=== PATIENT | male | born 1980 | race Caucasian/White ===

== ENCOUNTER 2017-06-22 10:59 | Emergency (ER) | payer OTHER ==
[~2017-06-22] VITALS: Ht 180.3 cm; Wt 91.8 kg
[2017-06-22 11:02] VITALS: TEMP 36.7; Ht 180.3 cm; Wt 91.8 kg
--- NOTE | 2017-06-22 11:51 | EMERGENCY ROOM VISIT NOTE ---
ED Visit Note First contact with patient: 11:10 CHIEF COMPLAINT: Shoulder pain HISTORY OF PRESENT ILLNESS: This 36-year-old male patient presents to the emergency department, ambulatory, complaining of pain in the right anterior shoulder shoulder which began at work 4 days ago. 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 He states he was holding the approximately 100 pound pipe on his right shoulder, crotch below the pipe. He states he then was pushing upward with his legs, causing pressure between his shoulder and the pipe. The patient states he is now experiencing pain in the superior anterior shoulder, but does occasionally radiate down the arm and into the deltoid. There is very mild limitation of motion of the arm because of the pain. The pain is moderate, constant and increases with abduction and supination of the shoulder. The patient states the pain is achy and 5/10. He states the pain has stayed overall the same as it was on after the initial injury, and he became concerned because it is not improving. The patient has taken 600 milligrams Advil twice daily without relief of the pain. No previous significant previous shoulder disease or injury. No numbness or tingling. No neck or back pain. No chest pain or shortness of breath. No abdominal pain or nausea/vomiting. No cough. REVIEW OF SYSTEMS: A 6 system review of systems was performed with positives and pertinent negatives in the HPI. ALLERGIES: None MEDICATIONS: None PMH: Hepatitis C SOCIAL HISTORY: The patient lives locally. He works at [employer]. He denies drug , alcohol use. He admits to using Sn[employer]. PHYSICAL EXAM: Vital Signs: Reviewed nurse's notes, vital signs stable. GENERAL : This is a 36-year-old white male, in no acute distress, well-developed, well- nourished. MUSCULOSKELETAL: There is no deformity in the contour of the right shoulder and there are no jorden deformities noted. There is no sulcus sign. There is tenderness over the AC joint. The patient's range of motion is full, however, full abduction with supination. Supraspinatus strength 5/5. There is mild clavicle tenderness at the acromial end. No tenderness of the humerus, elbow, wrist, or hand. Hand Tufter strength 5/5. Radial pulse 2+. NECK: No tenderness to palpation over the cervical spine or neck in the area of the trapezius muscle. HEART: Regular rate and rhythm without murmurs gallops or rubs. LUNGS: Clear to auscultation bilaterally without wheezes, rales or rhonchi. No accessory muscle use. No retractions. NEURO: The patient is alert and oriented to person, place, and time. Normal sensation to light and sharp touch. Capillary refill less than 2 seconds. RADIOLOGY: R SHOULDER MIN 2 VIEWS ROUTINE HISTORY: 36 years-old Male right anterior shoulder/AC joint pain acute right shoulder pain status post injury COMPARISON: None available TECHNIQUE: 3 views of the right shoulder FINDINGS: Mild degenerative changes of the AC joint. No acute fracture or subluxation identified. No evidence of AC joint separation. Mild multilevel endplate spurring of the spine. Imaged lung farias appear clear. IMPRESSION: Mild degenerative changes of the right acromioclavicular joint without acute fracture or subluxation. The above report was generated using voice recognition software. It may contain grammatical, syntax or spelling errors. Electronically signed by: Abraham Joyner M.D. 06/22/2017 11:56 AM Dictated Date/Time: 06/22/2017 11:55 AM EMERGENCY DEPARTMENT COURSE: I examined the patient. An X-ray of the right shoulder was reviewed by myself and radiologist and shows no acute fracture or bony abnormality. The patient's KORY and symptoms are consistent with a contusion of the shoulder, in the area of the AC joint. I did offer the patient a sling for comfort, and he declines. Discharge instructions were reviewed and the patient was discharged home in good condition. Blood Pressure Screening: Patient was found to have a slightly elevated blood pressure due to circumstances. I do not believe that the patient requires hypertension monitoring. I attest that I have personally reviewed the patient's current medication list. DIFFERENTIAL DIAGNOSIS: Shoulder contusion, sprain, strain, AC separation, dislocation, malignancy, and others DIAGNOSIS: Shoulder Contusion Current/Historical Medications No Active Prescriptions or Reported Meds Allergies Coded Allergies: No Known Allergies (Verified , 06/22/17) Vital Signs Date Time Temp Pulse Resp B/P (MAP) Pulse Ox O2 Delivery O2 Flow Rate FiO2 06/22/17 12:25 67 16 125/86 97 Room Air 06/22/17 11:02 36.7 81 18 151/92 99 Room Air Departure Information Impression Primary Impression: Contusion of right shoulder region Dispostion Home / Self-Care Condition GOOD Prescriptions No Active Prescriptions or Reported Meds Referrals Estelle Dailey M.D. (PCP) Patient Instructions ED Contusion Shoulder, My [facility] Additional Instructions You were seen in the emergency department for a right shoulder contusion. X- ray did rule out fracture, separation, or other concerning finding. As discussed, this will heal on its own. You should use ice to help decrease swelling and help with pain. Ibuprofen(Motrin, Advil) may be used for fever or pain. Use 400mg every six hours as needed. Take with food. Avoid using more than 2400mg in a 24 hour period. Do not use 2400mg per day for more than three consecutive days without physician direction. Prolonged inappropriate use can lead to stomach upset or ulcers. (AND/OR) Acetaminophen(Tylenol) may be used for fever or pain. Use 500-1000mg every six hours as needed. Avoid using more than 3000mg in a 24 hour period. Avoid heavy lifting until symptoms subside to avoid causing more pain. Please return to the ED for worsening pain, redness, new injury, or other concerning symptoms. Please follow-up with Worker's Compensation providers in 2-3 days for re-check and follow-up. Problem Qualifiers Primary Impression: Contusion of right shoulder region Encounter type: initial encounter Qualified Codes: S40.011A - Contusion of right shoulder, initial encounter
--- NOTE | 2017-06-22 11:58 | DIAGNOSTIC IMAGING REPORT ---
R SHOULDER MIN 2 VIEWS ROUTINE HISTORY: 36 years-old Male right anterior shoulder/AC joint pain acute right shoulder pain status post injury COMPARISON: None available TECHNIQUE: 3 views of the right shoulder FINDINGS: Mild degenerative changes of the AC joint. No acute fracture or subluxation identified. No evidence of AC joint separation. Mild multilevel endplate spurring of the spine. Imaged lung farias appear clear. IMPRESSION: Mild degenerative changes of the right acromioclavicular joint without acute fracture or subluxation. The above report was generated using voice recognition software. It may contain grammatical, syntax or spelling errors. Electronically signed by: Abraham Joyner M.D. 06/22/2017 11:56 AM Dictated Date/Time: 06/22/2017 11:55 AM
[2017-06-22 12:25] VITALS: BP 125/86; PULSE 67; O2SAT 97
== END 2017-06-22 11:05 | disposition home or self-care (01) ==
LOC: C.EDD 11:00
DX: S40.011A Contusion of right shoulder, initial encounter (principal); X50.0XXA Overexertion from strenuous movement or load, initial encounter; F17.200 Nicotine dependence, unspecified, uncomplicated

== ENCOUNTER 2017-08-10 08:38 | Emergency (ER) | payer OTHER ==
[~2017-08-10] VITALS: Ht 182.9 cm; Wt 92.8 kg
[2017-08-10 08:49] VITALS: TEMP 36.9; Ht 182.9 cm; Wt 92.8 kg
[2017-08-10] MEDS ORDERED: DOXY-300 PO (09:13)
--- NOTE | 2017-08-10 09:42 | DIAGNOSTIC IMAGING REPORT ---
CHEST 2 VIEWS ROUTINE CLINICAL HISTORY: cough, wheeze dyspnea COMPARISON STUDY: None FINDINGS: Moderate emphysematous change. No focal infiltrate. Diaphragms smooth but slightly flattened. No significant cardiac enlargement. IMPRESSION: Emphysematous change. No acute process. The above report was generated using voice recognition software. It may contain grammatical, syntax or spelling errors. Electronically signed by: Jose Rafael Ahumada M.D. 08/10/2017 9:41 AM Dictated Date/Time: 08/10/2017 9:40 AM
[2017-08-10] MEDS ORDERED: VNTHFA/IN INH (10:26)
[2017-08-10] MEDS ORDERED: METH4PAK PO (10:26)
--- NOTE | 2017-08-10 10:27 | EMERGENCY ROOM VISIT NOTE ---
History First contact with patient: 09:01 Chief Complaint: CONGESTION Stated Complaint: CONGESTION,LUNG Nursing Triage Summary: I have had congestion for the past 2 weeks. went to the dr 2 saturdays ago and was placed on antibiotics didnt seem to help. denies fevers and chills History of Present Illness The patient is a 37 year old male who presents to the Emergency Room with complaints of cough and chest congestion for 2 weeks. The patient states 10 days ago he was at his doctor for the same symptoms and was placed on doxycycline. He states his symptoms have not improved. The patient denies any head congestion, sore throat, fever or chills. The patient states that he quit smoking 12 years ago. The patient also states that he works indoors but it is not heated. He states his chest congestion is worse when he gets home and is in the heat. Review of Systems 10 system review was performed and was negative unless stated otherwise history of present illness. Past Medical/Surgical History Kidney stones, hepatitis C Social History Smoking Status: Former Smoker Smokeless Tobacco Use: No Alcohol Use: none Drug Use: none Marital Status: single Housing Status: lives with significant other Occupation Status: employed Current/Historical Medications Scheduled Doxycycline (Monohydrate) (Doxycycline), 100 MG PO BID Physical Exam Vital Signs Date Time Temp Pulse Resp B/P (MAP) Pulse Ox O2 Delivery O2 Flow Rate FiO2 08/10/17 08:49 36.9 96 18 146/94 98 Room Air Physical Exam PHYSICAL EXAM: Vital Signs were reviewed: Reviewed Nurse's notes and agree. GENERAL: 37 male appears in no acute distress. MENTAL STATUS: Alert, oriented, coherent. EARS: Canals clear. TMs good light reflex, no erythema or fluid level noted. NOSE: Nasal mucosa with moderate erythema engorgement. PHARYNX: No erythema, no edema noted. No exudate noted. Airway is adequate. NECK: Supple, non-tender. No lymphadenopathy noted. LUNGS: Patient has expiratory wheeze noted bilaterally along farias right greater than left. No rales or rhonchi noted. Good air exchange noted.. CARDIAC: Regular rate and rhythm without murmur. SKIN: No rashes noted. Medical Decision & Procedures ER Provider Diagnostic Interpretation: CHEST 2 VIEWS ROUTINE CLINICAL HISTORY: cough, wheeze dyspnea COMPARISON STUDY: None FINDINGS: Moderate emphysematous change. No focal infiltrate. Diaphragms smooth but slightly flattened. No significant cardiac enlargement. IMPRESSION: Emphysematous change. No acute process. The above report was generated using voice recognition software. It may contain grammatical, syntax or spelling errors. Electronically signed by: Jose Rafael Ahumada M.D. ED Course The patient was evaluated. The patient's EMR medication list were reviewed. Chest x-ray was ordered and interpreted by the radiologist as above with moderate emphysema changes. The patient was informed of the findings. He was unaware of the emphysema. The patient was discharged home in stable condition. Medical Decision Differential diagnosis include pneumonia, bronchitis, viral URI, asthma, reactive airway disease [place] Drug Monitoring Program Search Results: patient reviewed within database Medication Reconcilliation Current Medication List: was personally reviewed by [place] Blood Pressure Screening Patient's blood pressure: Elevated blood pressure Blood pressure disposition: Elevated BP felt to be situational Impression Primary Impression: Emphysema, unspecified Departure Information Dispostion Home / Self-Care Condition GOOD Prescriptions Albuterol Hfa (VENTOLIN HFA) 200 Puffs/07853 Mcg Aers 2 PUFFS INH QID for 5 Days, #1 INHALER Prov: Keara Ahumada PA-C 08/10/17 Methylprednisolone (MEDROL DOSEPAK) 4 Mg Flex 0 PO DAILY, #1 PKT Prov: Keara Ahumada PA-C 08/10/17 Referrals Estelle Dailey M.D. (PCP) Forms HOME CARE DOCUMENTATION FORM, IMPORTANT VISIT INFORMATION Patient Instructions Emphysema, My [facility] Additional Instructions Take Medrol dosepak as prescribed. Use Ventolin inhaler 2 puffs every 4 hours as needed for chest tightness or cough. Wear a mask at work. Follow-up with your family doctor for further evaluation of the emphysema. If symptoms worsen in the interim, return to ER. Problem Qualifiers Primary Impression: Emphysema, unspecified Emphysema type: unspecified Qualified Codes: J43.9 - Emphysema, unspecified
[2017-08-10 10:54] VITALS: BP 131/81; PULSE 83; O2SAT 95
== END 2017-08-10 10:55 | disposition home or self-care (01) ==
LOC: C.EDB 08:40 → C.EDC 10:55
DX: J43.9 Emphysema, unspecified (principal); Z87.891 Personal history of nicotine dependence; Z87.442 Personal history of urinary calculi; B19.20 Unspecified viral hepatitis C without hepatic coma

== ENCOUNTER → 2017-09-04 | Outpatient (CLI) | payer OTHER ==
[~2017-09-04] MED LIST: DOXY-300 PO
[2017-09-04 16:26] LABS: BASO % 0.8 %; BASO ABS # 0.06 K/uL (0-0.2); EOS % 4.4 %; EOS ABS # 0.32 K/uL (0-0.5); HEMATOCRIT 47.6 % (42-52); HEMOGLOBIN 16.6 g/dL (14.0-18.0); LYMPH % 34.4 %; LYMPH ABS # 2.52 K/uL (1.2-3.4); MEAN CORPUSCULAR HGB CONC 34.9 g/dl (32-36); MEAN PLATELET VOLUME 10.1 fL (7.4-10.4); MONO ABS # 0.73 K/uL (0.11-0.59); NEUT % 50.4 %; NEUT ABS # 3.69 K/uL (1.4-6.5); PLATELET COUNT 276 K/uL (130-400); RED CELL DISTRIBUTION WIDTH CV 13.2 % (11.5-14.5); RED CELL DISTRIBUTION WIDTH SD 42.9 fL (36.4-46.3); WHITE BLOOD COUNT 7.32 K/uL (4.8-10.8)
[2017-09-04 16:39] LABS: ALBUMIN 3.9 gm/dl (3.4-5.0); ALT/SGPT 329 U/L (12-78); AST/SGOT 154 U/L (15-37); BLOOD UREA NITROGEN 16 mg/dl (7-18); CALCIUM 9.1 mg/dl (8.5-10.1); CARBON DIOXIDE 26 mmol/L (21-32); CREATININE 1.05 mg/dl (0.60-1.40); GLUCOSE 98 mg/dl (70-99); SODIUM 140 mmol/L (136-145)
[2017-09-04 16:42] LABS: ALKALINE PHOSPHATASE 57 U/L (45-117); TOTAL PROTEIN 7.7 gm/dl (6.4-8.2)
== END | disposition home or self-care (01) ==
LOC: C.LABBFT 12:47
PROVIDERS: ATTEND Neuromusculoskeletal Medicine & OMM
DX: B18.2 Chronic viral hepatitis C (principal)

== ENCOUNTER → 2017-09-09 | Outpatient (CLI) | payer OTHER ==
[2017-09-09 17:33] LABS: BASO % 0.8 %; BASO ABS # 0.07 K/uL (0-0.2); EOS % 2.4 %; HEMATOCRIT 43.6 % (42-52); HEMOGLOBIN 15.7 g/dL (14.0-18.0); IG# 0.02 K/uL (0.00-0.02); LYMPH % 32.2 %; LYMPH ABS # 2.72 K/uL (1.2-3.4); MEAN CELL VOLUME 86.2 fL (80-100); MEAN PLATELET VOLUME 9.4 fL (7.4-10.4); MONO % 9.2 %; MONO ABS # 0.78 K/uL (0.11-0.59); NEUT % 55.2 %; NEUT ABS # 4.65 K/uL (1.4-6.5); PLATELET COUNT 287 K/uL (130-400); RED CELL DISTRIBUTION WIDTH CV 13.1 % (11.5-14.5); RED CELL DISTRIBUTION WIDTH SD 41.4 fL (36.4-46.3); WHITE BLOOD COUNT 8.44 K/uL (4.8-10.8)
[2017-09-09 17:44] LABS: INR 1.2 (0.9-1.1)
[2017-09-09 17:55] LABS: AST/SGOT 149 U/L (15-37); BLOOD UREA NITROGEN 17 mg/dl (7-18); CARBON DIOXIDE 25 mmol/L (21-32); CREATININE 0.82 mg/dl (0.60-1.40); GLUCOSE 84 mg/dl (70-99); SODIUM 137 mmol/L (136-145); URIC ACID 6.7 mg/dl (2.6-7.2)
[2017-09-09 18:07] LABS: ALKALINE PHOSPHATASE 52 U/L (45-117); ALT/SGPT 306 U/L (12-78); TOTAL PROTEIN 7.7 gm/dl (6.4-8.2)
[2017-09-10 08:57] LABS: HEMOGLOBIN A1C 5.6 % (4.5-5.6)
[2017-09-15 11:12] LABS: ANA SCREEN TC 249X NEGATIVE (NEGATIVE); ANTI-SS-A <1.0 NEG AI (<1.0 NEG); ANTI-SS-B <1.0 NEG AI (<1.0 NEG); ANTICARDIOLIPID AB IGA <11 APL (< = 11); COMPLEMENT C3 TC 44859W 135 MG/DL (90-180); COMPLEMENT C4 TC 44982E 17 MG/DL (16-47); HEPATITIS C VIRAL RNA BY PCR 4280000 IU/ML (<15); HEPATITIS C VIRAL RNA(LOG) PCR 6.63 LOG IU/ML (<1.18); MICROSOMAL AB <1 IU/ML (<9)
== END | disposition home or self-care (01) ==
LOC: C.LAB1850 16:33
PROVIDERS: ATTEND Internal Medicine Infectious Disease
DX: B18.2 Chronic viral hepatitis C (principal)

== ENCOUNTER → 2017-09-22 | Outpatient (CLI) | payer OTHER ==
--- NOTE | 2017-09-22 08:42 | DIAGNOSTIC IMAGING REPORT ---
ABDOMEN COMPLETE (US) CLINICAL HISTORY: 37 years-old Male with B18.2 Hepatitis C, chronicChronic hep [id number]. TECHNIQUE: Multiple real time sonographic images of the abdomen were obtained assessing leal-scale appearance. FINDINGS: PANCREAS: The pancreas is partially obscured by bowel gas. The visualized portions of the pancreas are normal without focal lesion or pancreatic duct dilatation. LIVER: The liver appears mildly echogenic and heterogeneous. There is a focal area of increased echogenicity in the right hepatic lobe, 9 mm as seen on image 20 without internal flow identified. There is no intrahepatic bile duct dilation, or contour nodularity. There is no ascites. GALLBLADDER: The gallbladder is fluid-filled without cholelithiasis, wall thickening, or pericholecystic fluid. Negative sonographic Beverly's sign. The common bile duct measures 0.5 cm. RIGHT KIDNEY: The right kidney measures 10.9 cm. The parenchymal echotexture and cortical thickness are normal. No nephrolithiasis or hydronephrosis. LEFT KIDNEY: The left kidney measures 11.4 cm. The parenchymal echotexture and cortical thickness are normal. No nephrolithiasis or hydronephrosis. SPLEEN: The spleen measures 10.2 cm and is normal in echotexture. No focal lesions are identified. VASCULATURE: The visualized aorta and inferior vena cava are sub-visualized although appear normal as seen. IMPRESSION: 1. Echogenic and heterogeneous appearance of the liver. 2. 9 mm echogenic lesion of the right hepatic lobe is indeterminate, however statistically favors a hepatic hemangioma. 3. No intrahepatic biliary ductal dilation. 4. No cholelithiasis or acute cholecystitis. The above report was generated using voice recognition software. It may contain grammatical, syntax or spelling errors. Electronically signed by: Abraham Joyner M.D. 09/22/2017 8:41 AM Dictated Date/Time: 09/22/2017 8:37 AM
== END | disposition home or self-care (01) ==
LOC: C.ULTR 06:36
PROVIDERS: ATTEND Internal Medicine Infectious Disease
DX: B18.2 Chronic viral hepatitis C (principal); K76.9 Liver disease, unspecified